=== PATIENT | female | born 1940 | race Caucasian/White ===

== ENCOUNTER → 2016-12-04 13:28 | Outpatient (CLI) | payer MEDICARE, BC ==
[2011-12-25 08:14] VITALS: BMI 26.2
== END | disposition home or self-care (01) ==
LOC: D.MAMMO 09:00
DX: Z12.31 Encounter for screening mammogram for malignant neoplasm of breast (principal)

== ENCOUNTER → 2017-02-13 15:35 | Outpatient (CLI) | payer MEDICARE, BC ==
[2011-12-25 08:14] VITALS: BMI 26.2
== END | disposition home or self-care (01) ==
LOC: D.CT 15:35
DX: M79.672 Pain in left foot (principal)

== ENCOUNTER → 2017-12-25 20:25 | Outpatient (CLI) | payer MEDICARE, BC ==
[2011-12-25 08:14] VITALS: BMI 26.2
== END | disposition home or self-care (01) ==
LOC: D.MAMMO 11-13 14:30
DX: Z12.31 Encounter for screening mammogram for malignant neoplasm of breast (principal)

== ENCOUNTER 2019-12-25 08:00 | Outpatient (CLI) | payer MEDICARE, BC ==
[2011-12-25 08:14] VITALS: BMI 26.2
== END 2019-12-25 15:49 | disposition home or self-care (01) ==
LOC: D.MAMMO 08:00
PROVIDERS: ATTEND Family Medicine
DX: Z12.31 Encounter for screening mammogram for malignant neoplasm of breast (principal)